=== PATIENT | male | born 1945 | race Caucasian/White ===

== ENCOUNTER → 2016-12-11 | Outpatient (CLI) | payer MEDICARE ==
[2016-12-11 12:58] LABS: ASPARTATE AMINO TRANSFERASE 16 U/L (15-37); BLOOD UREA NITROGEN 11 mg/dL (7-18); PROSTATE SPECIFIC ANTIGEN 6.73 ng/mL (0.00-4.00)
[2016-12-13 08:07] LABS: HDL-C 46 mg/dL (>39); HDL-P (TOTAL) 35.1 umol/L (>=30.5); LDL SIZE 20.7 nm (>20.5); LDL-C 93 mg/dL (0-99); LDL-P 1367 nmol/L (<1000); LP-INSULIN RESISTANCE SCORE 60 (<=45); SMALL LDL-P 597 nmol/L (<=527); TRIGLYCERIDES 145 mg/dL (0-149)
== END | disposition home or self-care (01) ==
LOC: CFH 08:15
PROVIDERS: ATTEND Emergency Medicine
DX: E78.2 Mixed hyperlipidemia (principal)
CPT/HCPCS: 36415; 80053; 80061; 83704; 84153

== ENCOUNTER → 2017-05-09 | Outpatient (CLI) | payer MEDICARE ==
[2017-05-09 13:03] LABS: BLOOD UREA NITROGEN 10 mg/dL (7-18)
[2017-05-09 13:10] LABS: ASPARTATE AMINO TRANSFERASE 18 U/L (15-37); PROSTATE SPECIFIC ANTIGEN 3.95 ng/mL (0.00-4.00)
[2017-05-11 08:07] LABS: HDL-C 51 mg/dL (>39); HDL-P (TOTAL) 35.4 umol/L (>=30.5); LDL SIZE 20.7 nm (>20.5); LDL-C 86 mg/dL (0-99); LDL-P 1199 nmol/L (<1000); LP-INSULIN RESISTANCE SCORE 49 (<=45); SMALL LDL-P 512 nmol/L (<=527); TRIGLYCERIDES 134 mg/dL (0-149)
== END | disposition home or self-care (01) ==
LOC: CFH 07:02
PROVIDERS: ATTEND Internal Medicine Cardiovascular Disease
DX: Z13.6 Encounter for screening for cardiovascular disorders (principal); I25.84 Coronary atherosclerosis due to calcified coronary lesion; E78.4 Other hyperlipidemia
CPT/HCPCS: 36415; 80053; 80061; 82550; 83704; 84153

== ENCOUNTER → 2017-08-15 | Outpatient (CLI) | payer MEDICARE ==
[2017-08-17 08:07] LABS: HDL-C 56 mg/dL (>39); HDL-P (TOTAL) 34.9 umol/L (>=30.5); LDL SIZE 21.1 nm (>20.5); LDL-C 174 mg/dL (0-99); LDL-P 2214 nmol/L (<1000); LP-INSULIN RESISTANCE SCORE 86 (<=45); SMALL LDL-P 465 nmol/L (<=527); TRIGLYCERIDES 142 mg/dL (0-149)
== END | disposition home or self-care (01) ==
LOC: CFH 07:13
PROVIDERS: ATTEND Internal Medicine Cardiovascular Disease
DX: E78.2 Mixed hyperlipidemia (principal)
CPT/HCPCS: 36415; 80061; 82172; 83704

== ENCOUNTER → 2018-02-13 | Outpatient (CLI) | payer MEDICARE ==
[~2018-02-13] MED LIST: ASPI-496 PO; ATOR40TA78 PO; DABI75CA3 PO; OMEP20TA62 PO; TADA5TAB2 PO; crestor
== END | disposition home or self-care (01) ==
LOC: CVU 07:42
PROVIDERS: ATTEND Internal Medicine Cardiovascular Disease
DX: I70.0 Atherosclerosis of aorta (principal); I70.8 Atherosclerosis of other arteries; I65.23 Occlusion and stenosis of bilateral carotid arteries; I10 Essential (primary) hypertension; I25.10 Atherosclerotic heart disease of native coronary artery without angina pectoris; Z82.49 Family history of ischemic heart disease and other diseases of the circulatory system
CPT/HCPCS: 93880; 93978